=== PATIENT | male | born 1960 | race Caucasian/White ===

== ENCOUNTER 2017-02-18 12:12 | Emergency (ER) | payer OTHER ==
[~2017-02-18] VITALS: Ht 182.9 cm; Wt 93.0 kg
[~2017-02-18 12:12] MED LIST: DIAZ5TAB PO; FAMO20TA7 PO; OXYC-302 PO; PARO40TA3 PO; SIMV20TA3 PO
[2017-02-18 12:16] VITALS: BP 129/80
[2017-02-18] MEDS ORDERED: ONDANSETRON 2MG/ML, 2ML IVPush ONE (13:30)
[2017-02-18] MEDS ORDERED: SODIUM CHLORIDE 0.9% 1,000ML IV ONE (13:30)
[2017-02-18] MEDS ORDERED: SODIUM CHLORIDE FLUSH 10ML SYR IVF ONE (13:30)
[2017-02-18] MEDS ORDERED: KETOROLAC 30 MG/1 ML IVPush ONE (13:30)
== END 2017-02-18 13:25 | disposition left against medical advice (07) ==
LOC: ED 13:19
DX: R10.9 Unspecified abdominal pain (principal); R11.0 Nausea
CPT/HCPCS: 99281

== ENCOUNTER 2020-11-21 08:44 | Outpatient (CLI) | payer OTHER ==
[~2020-11-21 08:44] MED LIST changes: -OXYC-302 PO; +OXYC1TAB12 PO; +SIMV20TA19 PO; -SIMV20TA3 PO
[2020-11-21] MEDS ORDERED: MULT-658 PO (09:09)
[2020-11-21] MEDS ORDERED: GLUC1CAP18 PO (09:09)
[2020-11-21] MEDS ORDERED: OMEG-76 PO (09:09)
[2020-11-21] MEDS ORDERED: VIT1TABL32 PO (09:09)
[2020-11-21 09:40] LABS: BASOPHILS % (AUTO) 1 % (0-1); EOSINOPHILS % (AUTO) 3 % (1-7); LYMPHOCYTES % (AUTO) 29 % (22-44); MEAN CORPUSCULAR HEMOGLOBIN 28.8 pg (27.5-34.5); MEAN CORPUSCULAR HGB CONC 33.7 g/dL (33.2-36.2); MEAN PLATELET VOLUME 7.2 fL (7.4-10.4); MONOCYTES % (AUTO) 9 % (2-9); NEUTROPHILS % (AUTO) 58 % (42-75); PLATELET COUNT 240 x10^3/uL (130-400); RED BLOOD COUNT 5.46 x10^6/uL (4.38-5.82); RED CELL DISTRIBUTION WIDTH 13.3 % (9.4-14.8)
[2020-11-21 09:51] LABS: ANION GAP 5 mmol/L (5-15); CALCIUM 9.7 mg/dL (8.5-10.1); CHLORIDE 106 mmol/L (98-107); CREATININE 1.04 mg/dL (0.7-1.3); INTERNATIONAL NORMALIZED RATIO 0.97 (0.93-1.1); PROTHROMBIN TIME 10.4 Seconds (9.6-11.5)
== END 2020-11-21 23:59 | disposition home or self-care (01) ==
LOC: STAR 08:44
PROVIDERS: ATTEND Family Medicine
DX: Z01.818 Encounter for other preprocedural examination (principal); G56.02 Carpal tunnel syndrome, left upper limb; I44.0 Atrioventricular block, first degree; R00.1 Bradycardia, unspecified
CPT/HCPCS: 36415; 80048; 85025; 85610; 85730; 93005